=== PATIENT | male | born 1950 | race Two or more races ===

== ENCOUNTER 2019-06-05 10:59 | Inpatient (IN) | payer OTHER ==
[~2019-06-05] VITALS: Ht 182.9 cm; Wt 74.8 kg
[2019-06-12] MEDS ORDERED: ZOCOR20 MG PO (14:58)
[2019-06-12] MEDS ORDERED: COZAAR25 MG PO (14:59)
[2019-06-12] MEDS ORDERED: FORTAMET1000 MG PO (14:59)
[2019-06-12] MEDS ORDERED: RESTORIL15 M1 PO (14:59)
[2019-06-12] MEDS ORDERED: GLIMEPIRIDE2 MG PO (15:00)
[2019-06-12] MEDS ORDERED: CENTRUM SILVER1 EAC4 PO (15:00)
[2019-06-26] MEDS ORDERED: ULTRACET PO (08:55)
[2019-06-26] MEDS ORDERED: INTEGRA F CAPS1 EACH PO (08:55)
[2019-06-26] MEDS ORDERED: Vitamin B-6 PO (08:56)
[2019-06-26] MEDS ORDERED: Neurin-Sl Tablet Sl SL (08:57)
== END 2019-06-26 10:11 | disposition home or self-care (01) | DRG 329 ==
LOC: SURG 06-12 08:15 → O/R 06-17 10:27 → SURH 06-17 10:27 → SURG 06-17 11:30 → SURH 06-17 19:10
PROVIDERS: ADMIT Surgery
PROC: 07TD4ZZ Resection of Aortic Lymphatic, Percutaneous Endoscopic Approach (ICD-10-PCS; 2019-06-17)
PROC: 0DTF4ZZ Resection of Right Large Intestine, Percutaneous Endoscopic Approach (ICD-10-PCS; principal; 2019-06-17 11:30)
PROC: 30233N1 Transfusion of Nonautologous Red Blood Cells into Peripheral Vein, Percutaneous Approach (ICD-10-PCS; 2019-06-20)
PROC: 4A12X4Z Monitoring of Cardiac Electrical Activity, External Approach (ICD-10-PCS; 2019-06-20)
PROC: B246ZZZ Ultrasonography of Right and Left Heart (ICD-10-PCS; 2019-06-23)
PROC: BW21Y0Z Computerized Tomography (CT Scan) of Abdomen and Pelvis using Other Contrast, Unenhanced and Enhanced (ICD-10-PCS; 2019-06-24)
DX: C18.2 Malignant neoplasm of ascending colon (principal); I50.21 Acute systolic (congestive) heart failure; D62 Acute posthemorrhagic anemia; I97.89 Other postprocedural complications and disorders of the circulatory system, not elsewhere classified; J98.11 Atelectasis; K57.30 Diverticulosis of large intestine without perforation or abscess without bleeding; R59.0 Localized enlarged lymph nodes; E11.9 Type 2 diabetes mellitus without complications; Z79.4 Long term (current) use of insulin; I11.0 Hypertensive heart disease with heart failure

== ENCOUNTER 2019-07-22 10:03 | Inpatient (IN) | payer OTHER ==
[~2019-07-22] VITALS: Ht 355.6 cm; Wt 68.0 kg
[~2019-07-22 10:03] MED LIST: CENTRUM SILVER1 EAC4 PO; COZAAR25 MG PO; FORTAMET1000 MG PO; GLIMEPIRIDE2 MG PO; INTEGRA F CAPS1 EACH PO; Neurin-Sl Tablet Sl SL; RESTORIL15 M1 PO; ULTRACET PO; Vitamin B-6 PO; ZOCOR20 MG PO
== END 2019-07-31 14:03 | disposition home or self-care (01) | DRG 603 ==
LOC: ER 10:03 → SURG 16:06 → SURH 07-25 13:57
PROVIDERS: ADMIT Surgery
PROC: BW21Y0Z Computerized Tomography (CT Scan) of Abdomen and Pelvis using Other Contrast, Unenhanced and Enhanced (ICD-10-PCS; principal; 2019-07-22)
PROC: 8E0ZXY6 Isolation (ICD-10-PCS; 2019-07-23)
DX: L03.311 Cellulitis of abdominal wall (principal); T81.49XA Infection following a procedure, other surgical site, initial encounter; J98.11 Atelectasis; D50.8 Other iron deficiency anemias; I11.9 Hypertensive heart disease without heart failure; J84.10 Pulmonary fibrosis, unspecified; E11.628 Type 2 diabetes mellitus with other skin complications; A49.02 Methicillin resistant Staphylococcus aureus infection, unspecified site; Z79.4 Long term (current) use of insulin

== ENCOUNTER 2019-10-14 10:31 | Emergency (ER) | payer OTHER ==
[~2019-10-14] VITALS: Ht 182.9 cm; Wt 65.8 kg
== END 2019-10-14 11:20 | disposition home or self-care (01) ==
LOC: ER 10:31
DX: L92.8 Other granulomatous disorders of the skin and subcutaneous tissue (principal)